=== PATIENT | female | born 1995 | race Caucasian/White ===

== ENCOUNTER 2024-06-12 15:08 | Emergency (ER) | payer BC, SELFPAY ==
[2024-06-12] VITALS (7 sets, daily range): BP systolic 106–131; BP diastolic 76–94; BMI 22.6
[2024-06-12 15:30] LABS: % Basophils 0.6 % (0-2); % Immature Granulocytes 0.1 % (0-0.5); % Lymphocytes 26.3 % (20.5-51.1); % Monocytes 5.4 % (1.7-9.3); % Neutrophils 63.6 % (42.2-75.2); Absolute Basophils 0.1 10^3/uL (0-0.2); Absolute Eosinophils 0.3 10^3/uL (0-0.7); Absolute Monocytes 0.4 10^3/uL (0.1-0.6); Absolute Neutrophils 4.9 10^3/uL (1.4-6.5); Hematocrit 40.1 % (37.0-47.0); Hemoglobin 13.6 g/dL (12.0-16.0); Mean Corp Hgb Conc. 33.9 g/dL (33.0-37.0); Mean Corpuscular Hgb 29.3 pg (27.0-31.0); Mean Corpuscular Volume 86.4 fL (81.0-99.0); Mean Platelet Volume 9.5 fL (7.4-10.4); Nucleated Red Blood Cells % 0 %; Platelet Count 291 10^3/uL (130-400); Red Blood Cell Count 4.64 10^6/uL (4.20-5.40); Red Cell Dist. Width 12.6 % (11.5-14.5); White Blood Cell Count 7.8 10^3/uL (4.8-10.8)
[2024-06-12 15:44] LABS: D-Dimer 2.52 ug/mlFEU (0.00-0.50)
[2024-06-12 16:00] LABS: HCG, Serum Qualitative Screen Negative
[2024-06-12 16:04] LABS: ALT (SGPT) 13 U/L (0-35); AST (SGOT) 23 U/L (14-36); Albumin 5.3 g/dl (3.5-5.0); Alkaline Phosphatase 46 U/L (38-126); Blood Urea Nitrogen 9 mg/dl (7-17); Carbon Dioxide 26 mmol/L (22-30); Chloride 101 mmol/L (98-107); Glucose 103 mg/dl (70-99); Sodium 137 mmol/L (135-145); Total Bilirubin 0.7 mg/dl (0.2-1.3); Total Protein 8.2 g/dl (6.3-8.2); eGFR > 60.00
[2024-06-12] MEDS: OMNIPAQUE 50 ML PO (18:07)
--- NOTE | 2024-06-12 19:59 | ED.GENMED ---
History of Present Illness
General
Chief Complaint: Abdominal Pain
Source: patient
Time Seen by Provider: 06/12/24 17:43
Nursing documentation reviewed up to this point in time: agreed with
History of Present Illness
History of Present Illness:
Patient status post insulinoma removal 1 month ago at [facility] in [place], presents to ED secondary to progressive worsening left upper abdominal pain over the past 2 weeks. Abdominal pain described as sharp, nonradiating, worse with talking,
breathing, and certain movements. Denies direct trauma. Denies difficulty with bowel movements. Denies fever or chills. Denies nausea or vomiting. Patient was told that after surgery, she would not require any further follow-up evaluation.
Review of Systems
Review of Systems
Allergies reviewed?: Yes
Constitutional: Reports no symptoms; Denies fever or chills
Respiratory: Reports no symptoms
Cardiac: Reports no symptoms
ABD/GI: Reports abdominal pain; Denies nausea or vomiting
Musculoskeletal: Reports no symptoms
Skin: Reports no symptoms
Neurological: Reports no symptoms
Phy Exam
Physical Exam
Physical Exam:
Physical Exam
General: mild painful distress, not acutely ill. afebrile
Head: nc/at. eomi
Neck: supple. no meningeal signs.
Heart: s1/s2 regular rate and rhythm, no murmur. equal radial pulses.
Lungs: no acute respiratory distress. clear bilaterally
Abdomen: normal bowel sounds. not tender. mild LUQ tenderness to palpation. well healing midline surgical scar noted.
Neuro: alert and oriented. no focal neurological deficits
Skin: no rash
Psychiatric: well kept. interactive and cooperative
Extremities: no edema. no calf tenderness.
Course
Orders/Labs/Results
Orders:
Orders
06/12/24 15:15
Test Result ONCE
06/12/24 15:21
Complete Blood Count/With Diff Urgent
Comprehensive Metabolic Panel Urgent
D-Dimer Urgent
HCG, Serum Qualitative Screen Urgent
06/12/24 18:04
CT Abd/pel W Iv And Oral Contr Urgent
Comment:
Reason For Exam: LUQ pain, s/p insulinoma resection
Iohexol [Omnipaque] 50 ml .ROUTE .STK-MED ONE
Iohexol [Omnipaque] See Protocol PO NOW STA
Abnormal Lab Results
06/12/24
15:21
D-Dimer 2.52 H ug/mlFEU
(0.00-0.50)
Glucose 103 H mg/dl
(70-99)
Albumin 5.3 H g/dl
(3.5-5.0)
06/12/24 15:21
06/12/24 15:21
Vital Signs
Initial and Last Documented VS:
Initial Vital Signs
Temp Pulse Resp BP Pulse Ox
98.2 F 76 16 131/90 100
06/12/24 15:09 06/12/24 15:09 06/12/24 15:09 06/12/24 15:09 06/12/24 15:09
Last Documented Vital Signs
Temp Pulse Resp BP Pulse Ox
98.2 F 71 18 106/76 98
06/12/24 15:09 06/12/24 23:15 06/12/24 23:15 06/12/24 23:00 06/12/24 23:15
MDM/Problems Addressed
MDM/Problems Addressed:
CT abdomen pelvis report reviewed and discussed with patient and spouse, at bedside. History and exam consistent with likely musculoskeletal etiology for her pain, as symptoms started after she had bout of sneezing and runny nose. Elevated
D-dimer, nonspecific, unlikely PE, as pain is completely localized and reproducible on exam. Patient is scheduled to have consultation with physical therapist on Friday, at which point she will discuss also her CT report findings. Patient has been
experiencing improvement in symptoms with physical therapy for the past 2 weeks. In addition, recommended outpatient follow-up with her primary care physician as well, to determine future course of treatment, if symptoms still present.
*Critical Care Note
Total Time (30-74mins, 75-104mins- exclusive of procedures): Not Applicable
ED Attending Note
-
Portions of this chart may have been created with voice recognition software.� Occasional wrong word or��sound alike� substitutions may have occurred due to the inherent limitations of voice recognition software.
Discharge Plan
Departure
Patient Disposition: Home (Routine Discharge)
Date of Disposition: 06/12/24
Time of Disposition: 23:30
Patient with high blood pressure during this ER visit?: Yes
Condition: Good
Discharge Problem:
Musculoskeletal pain
Instructions: Costochondritis, Musculoskeletal Pain
Prescriptions:
New
tramadol 50 mg tablet
50 mg PO TID PRN (Reason: Pain) Qty: 14 0RF
Referrals:
Kamille Aguilar MD [Family Provider] -
Activity Restrictions/Additional Instructions:
As discussed, please follow-up with your primary care physician for reevaluation. Your prescription has been sent electronically to [facility] pharmacy in [place]
Interventions
Interventions:
*Risk Screen - Suicide Last Done: 06/12/24 15:09
*General Assessment Last Done: 06/12/24 15:09
*Neglect/Abuse Screening Last Done: 06/12/24 15:09
ED- Fall Risk Assessment Last Done: 06/12/24 17:56
*ED COVID-19 Vaccine History Last Done: 06/12/24 15:09
*Nursing Disposition Last Done: 06/12/24 23:35
SS-Xdaglz-Jcwgxhjgov Assessment Last Done: 06/12/24 17:56
Discharge Date and Time
Discharge Date/Time: 06/12/24 23:35
Print Language: TELUGU
== END 2024-06-12 23:35 | disposition home or self-care (01) ==
LOC: EMR 15:08
PROVIDERS: Student in an Organized Health Care Education/Training Program; EMERGENCY PHYSICIAN Emergency Medicine; FAMILY PHYSICIAN Family Medicine
DX: R10.12 Left upper quadrant pain (principal); M79.18 Myalgia, other site; R03.0 Elevated blood-pressure reading, without diagnosis of hypertension; Z98.890 Other specified postprocedural states
CPT/HCPCS: 99284; 74177; 80053; 84703; 85025; 85379; Q9967